=== PATIENT | female | born 1985 | race Caucasian/White ===

== ENCOUNTER 2021-06-08 07:13 | Outpatient (CLI) | payer OTHER ==
[2021-06-08] VITALS (7 sets, daily range): BP systolic 105–122; BP diastolic 65–84; PULSE 75–86; TEMP 98.1
[~2021-06-08] VITALS: Ht 167.6 cm; Wt 85.0 kg
[2021-06-08 08:24] LABS: HEMATOCRIT 38.8 % (37.0-47.0); HEMOGLOBIN 12.8 g/dl (12.5-16.0); MEAN CELL VOLUME 80 fl (80.0-100.0); MEAN CORPUSCULAR HEMOGLOBIN 27 pg (27-31); MEAN CORPUSCULAR HGB CONC 33 g/dl (33.0-37.0); MEAN PLATELET VOLUME 9.5 fl (7.4-10.4); PLATELET COUNT 224 K/mm3 (130-400); RED BLOOD COUNT 4.83 M/mm3 (4.10-5.30); REDCELL DISTRIBUTION WIDTH-CV 13.9 % (11.5-14.5)
[2021-06-08 08:40] LABS: CALCIUM 8.3 mg/dL (8.4-10.2); CREATININE, serum 0.73 mg/dL (0.57-1.11); POTASSIUM 3.7 mmol/L (3.5-4.5)
[2021-06-08] MEDS ORDERED: CRESTOR20 MG PO (08:55)
[2021-06-08] MEDS ORDERED: ASPIRIN 81M81 MG/TA2 PO (08:56)
--- NOTE | 2021-06-08 12:00 | NUR ---
Discharge instructions given to pt.Pt verbalizes understanding.INt removed,catheter tip intact.Pt escorted out via wheelchair by this nurse.
== END 2021-06-08 12:40 ==
LOC: COL.RAD 07:13
PROVIDERS: Internal Medicine Adult Congenital Heart Disease
DX: G45.9 Transient cerebral ischemic attack, unspecified (principal); Z20.822 Contact with and (suspected) exposure to COVID-19
CPT/HCPCS: J2704; J3010